=== PATIENT | male | born 1980 | race Caucasian/White ===

== ENCOUNTER 2020-08-28 11:33 | Emergency (ER) | payer MEDICAID ==
[~2020-08-28] VITALS: Ht 175.3 cm; Wt 76.0 kg
[2020-08-28] MEDS ORDERED: SODIUM CHLORIDE 0.9% 1,000 ML IV ONE (12:00)
[2020-08-28] MEDS ORDERED: ONDANSETRON HCL 4MG/2ML INJ IV ONE (12:00)
[2020-08-28] MEDS ORDERED: KETOROLAC 15MG/ML VIAL IV ONE (12:15)
[2020-08-28 12:17] LABS: BASOPHILS % 0.6 % (0.0-2.0); EOSINOPHILS % 0.4 % (0.0-5.0); HEMATOCRIT. 42.3 % (42.0-52.0); HEMOGLOBIN. 14.8 g/dL (14.0-18.0); LYMPHOCYTES % 10.8 % (20.0-50.0); MEAN CORPUSCULAR HEMOGLOBIN 30.2 pg (28.0-32.0); MEAN CORPUSCULAR VOLUME 86.5 fL (80.0-94.0); MEAN PLATELET VOLUME 8.3 fl (7.4-10.4); MONOCYTES % 3.4 % (2.0-8.0); NEUTROPHILS % 84.8 % (40.0-76.0); PLATELET 267 x1000/uL (130-400); RED CELL DISTRIBUTION WIDTH 13.4 % (11.6-14.6)
[2020-08-28 12:27] LABS: PROTHROMBIN TIME 10.9 sec (9.6-11.0)
[2020-08-28 12:29] LABS: CHLORIDE 111 mEq/L (98-107)
[2020-08-28 12:33] LABS: ETHANOL BLOOD < 10 mg/dL
[2020-08-28] MEDS ORDERED: ONDA4TAB5 MT (13:23)
[2020-08-28] MEDS ORDERED: FAMO40TA70 MT (13:23)
[2020-08-28 14:37] VITALS: BP 117/73
== END 2020-08-28 14:40 | disposition home or self-care (01) ==
LOC: ER 11:33
DX: D72.829 Elevated white blood cell count, unspecified (principal); R11.2 Nausea with vomiting, unspecified; R10.9 Unspecified abdominal pain; F17.200 Nicotine dependence, unspecified, uncomplicated; Z13.9 Encounter for screening, unspecified
CPT/HCPCS: 36415; 80053; 80320; 83690; 85025; 85610; 93005; 96361; 96374; 96375; 99284; J1885; J2405; J7030; G0480